=== PATIENT | female | born 1985 | race Caucasian/White ===

== ENCOUNTER 2018-11-06 15:23 | Emergency (ER) | payer OTHER ==
[~2018-11-06] VITALS: Ht 157.5 cm; Wt 55.3 kg
[2018-11-06] MEDS ORDERED: PROMETHAZINE W473 ML PO (17:44)
== END 2018-11-06 17:54 | disposition home or self-care (01) ==
LOC: ER 15:23
DX: J06.9 Acute upper respiratory infection, unspecified (principal)